=== PATIENT | female | born 1965 | race Caucasian/White ===

== ENCOUNTER 2021-06-15 15:31 | Emergency (ER) | payer MEDICARE, OTHER ==
[~2021-06-15] VITALS: Ht 160 cm; Wt 51.4 kg
[2021-06-15 16:21] LABS: COVID AG,FIA SOURCE NASOPHARYNGEAL
[2021-06-15 18:31] VITALS: BP 111/65
== END 2021-06-15 18:32 | disposition home or self-care (01) ==
LOC: EMS 16:01
DX: U07.1 COVID-19 (principal)
CPT/HCPCS: 99283